=== PATIENT | male | born 1975 | race Caucasian/White ===

== ENCOUNTER 2021-09-06 09:41 | Day surgery (SDC) | payer BC ==
[2021-09-06] MEDS: Lactated Ringers 1,000 ML IV SCH ×2 (09:15→11:40)
[~2021-09-06 09:41] MED LIST: EPINEPHrine 1 MG/ML 30 ML MDV IRR SCH; Lidocaine 1% 4 ML ONE; Lidocaine 1%/Sod Bicarbonate in NS 8.4% 1 ML Syringe IDERM PRN; Midazolam 1 MG/ML 2 ML SDV ONE; Ondansetron 4 MG/2 ML SDV ONE; Propofol 200 MG/20 ML SDV ONE; Sodium Chloride 0.9% 10 ML Syringe FLUSH PRN; Sodium Chloride 0.9% 10 ML Syringe FLUSH SCH; ceFAZolin 1 GM Vial ONE; fentaNYL 250 MCG/5 ML SDV ONE
[2021-09-06] MEDS ORDERED: Bupivacaine 0.25% 10 ML SDV ONE (10:58)
[2021-09-06] MEDS ORDERED: Acetaminophen/HYDROcodone 325-5 MG Tab PO ONE (12:15)
== END 2021-09-06 13:35 | disposition home or self-care (01) ==
LOC: JD.SDS 09:41
PROVIDERS: ATTEND Orthopaedic Surgery
DX: S83.242A Other tear of medial meniscus, current injury, left knee, initial encounter (principal); M22.42 Chondromalacia patellae, left knee; F41.9 Anxiety disorder, unspecified; F32.A Depression, unspecified; E78.00 Pure hypercholesterolemia, unspecified; I10 Essential (primary) hypertension; E66.01 Morbid (severe) obesity due to excess calories; G47.33 Obstructive sleep apnea (adult) (pediatric); Z79.899 Other long term (current) drug therapy; Z98.84 Bariatric surgery status; Z98.890 Other specified postprocedural states; Z68.41 Body mass index [BMI] 40.0-44.9, adult; Z87.891 Personal history of nicotine dependence
CPT/HCPCS: 29881; J0171; J0690; J2250; J2370; J2405; J2704; J3010; J3490; J7120; 01400

== ENCOUNTER 2022-10-10 15:24 | Emergency (ER) | payer BC, OTHER ==
[2022-10-10] MEDS ORDERED: Sodium Chloride 0.9% 10 ML Syringe FLUSH PRN (15:46)
[2022-10-10 17:24] LABS: CORONAVIRUS COVID-19 NAA NEGATIVE (NEGATIVE)
== END 2022-10-10 18:02 | disposition home or self-care (01) ==
LOC: JD.ED 15:24
DX: R07.89 Other chest pain (principal); E78.00 Pure hypercholesterolemia, unspecified; I10 Essential (primary) hypertension; E66.9 Obesity, unspecified; Z68.42 Body mass index [BMI] 45.0-49.9, adult; Z79.82 Long term (current) use of aspirin; Z79.899 Other long term (current) drug therapy; Z20.822 Contact with and (suspected) exposure to COVID-19
CPT/HCPCS: 0241U; 36415; 71045; 80053; 83735; 83880; 84484; 85025; 85379; 85610; 93005; 99285; J3490; 93010; 99284